=== PATIENT | male | born 1995 | race Caucasian/White ===

== ENCOUNTER 2022-01-10 21:12 | Inpatient (IN) | payer BC ==
[~2022-01-10 21:12] MED LIST: Iopamidol 300 61% 100 ML VIAL FS ONE
[2022-01-10 22:27] LABS: #Basophils 0.1 10x3/uL (0.0-0.2); #Monocytes 0.8 10x3/uL (0.0-1.1); %Basophils 1.2 % (0.0-2.0); %Eosinophils 0.2 % (0.0-6.0); %Lymphocytes 17.5 % (18.0-47.0); %Monocytes 13.6 % (0.0-10.0); %Neutrophils 67.3 % (40.0-75.0); Hemoglobin 12.8 g/dL (13.5-17.5); Mean Corpuscular HGB CONC 35.4 g/dL (32.0-36.0); Mean Corpuscular Hemoglobin 33.1 pg (27.0-33.0); Mean Corpuscular Volume 93.5 fl (81.2-95.1); Mean Platelet Volume 9.2 fl (7.4-10.4); Platelet Count 209 10x3/uL (150-450); RBC Distribution Width 11.8 % (11.5-14.5); Red Blood Cell (RBC) Count 3.87 10x6/uL (4.32-5.72); White Blood Cell (WBC) Count 5.9 10x3/uL (3.5-10.5)
[2022-01-10] MEDS ORDERED: Ondansetron PF 4 MG/2 ML Vial ONE (22:29)
[2022-01-10] MEDS ORDERED: Midazolam HCl 2 mg/2 ml Vial ONE (22:29)
[2022-01-10 22:40] LABS: ALT (SGPT) 71 U/L (8-55); AST (SGOT) 62 U/L (5-34); Albumin 4.6 g/dL (3.5-5.0); Alkaline Phosphatase 73 U/L (40-110); Anion Gap 13 mmol/L (10-20); BUN (Urea Nitrogen) 13 mg/dL (8.9-20.6); Bilirubin, Total 1.1 mg/dL (0.2-1.2); Calc. Creatinine Clearance 0 mL/min (70-130); Calcium 9.2 mg/dL (7.8-10.44); Carbon Dioxide 23 mmol/L (22-29); Chloride 106 mmol/L (98-107); Estimated GFR 126; Globulin 2.6 g/dL (2.4-3.5); Glucose 101 mg/dL (70-105); Lipase 25 U/L (8-78); Potassium 3.9 mmol/L (3.5-5.1); Protein, Total 7.2 g/dL (6.0-8.3); Sodium 138 mmol/L (136-145)
[2022-01-10] MEDS ORDERED: chlordiazePOXIDE HCl 25 MG CAP ONE (22:43)
[2022-01-10] MEDS ORDERED: Ketorolac Tromethamine 30 MG/ML VIAL ONE (22:44)
[2022-01-10] MEDS ORDERED: Morphine 4 MG/ML VIAL ONE (22:44)
[2022-01-10] MEDS ORDERED: Multivitamins, Adult 10 ML, Thiamine HCl 100 MG, Folic Acid 1 MG in Dextrose 5 %-0.45 %... IV SCH (23:00)
[2022-01-10] MEDS ORDERED: Calcium Carbonate 500 MG ChewTAB PO PRN (23:36)
[2022-01-10] MEDS ORDERED: Senokot S 8.6-50 MG TAB PO PRN (23:36)
[2022-01-10] MEDS ORDERED: Ondansetron PF 4 MG/2 ML Vial IVP PRN (23:36)
[2022-01-10] MEDS ORDERED: Guaifenesin DM 100-10/5 ML UDCUP PO PRN (23:36)
[2022-01-10] MEDS ORDERED: Morphine 2 MG/ML VIAL SLOW IVP PRN (23:56)
[2022-01-10] MEDS ORDERED: Nicotine 21 MG PATCH TD SCH (23:59)
[2022-01-11 01:55] VITALS: BMI 28.7
[2022-01-11] MEDS: Lorazepam 2 MG/ML VIAL SLOW IVP SCH ×7 (02:03→23:59)
[2022-01-11] MEDS: Dextrose 5%-Lactated Ringers 1,000 ML IV SCH ×3 (02:03→18:46)
[2022-01-11 04:28] LABS: SARS-CoV-2 NAA Rapid Test Not Detected (NotDetected)
[2022-01-11 06:41] LABS: Hemoglobin 12.2 g/dL (13.5-17.5); Mean Corpuscular HGB CONC 34.2 g/dL (32.0-36.0); Mean Corpuscular Hemoglobin 33.1 pg (27.0-33.0); Mean Corpuscular Volume 96.7 fl (81.2-95.1); Platelet Count 167 10x3/uL (150-450); RBC Distribution Width 11.9 % (11.5-14.5); Red Blood Cell (RBC) Count 3.69 10x6/uL (4.32-5.72); White Blood Cell (WBC) Count 4.7 10x3/uL (3.5-10.5)
[2022-01-11 07:03] LABS: ALT (SGPT) 65 U/L (8-55); AST (SGOT) 61 U/L (5-34); Alkaline Phosphatase 64 U/L (40-110); Anion Gap 11 mmol/L (10-20); BUN (Urea Nitrogen) 9 mg/dL (8.9-20.6); Bilirubin, Total 1.2 mg/dL (0.2-1.2); CK (CPK) 227 U/L (30-200); Calc. Creatinine Clearance 176 mL/min (70-130); Calcium 8.5 mg/dL (7.8-10.44); Carbon Dioxide 25 mmol/L (22-29); Chloride 107 mmol/L (98-107); Estimated GFR 125; Globulin 2.1 g/dL (2.4-3.5); Glucose 97 mg/dL (70-105); Lipase 49 U/L (8-78); Magnesium 2.1 mg/dL (1.6-2.6); Phosphorus 3.7 mg/dL (2.3-4.7); Potassium 3.2 mmol/L (3.5-5.1); Protein, Total 6.1 g/dL (6.0-8.3); Sodium 140 mmol/L (136-145)
[2022-01-11] MEDS ORDERED: Electrolyte Replacement Protocol 1 EACH FS SCH (08:15)
[2022-01-11 09:12] LABS: MDiff Complete? YES
[2022-01-11] MEDS: Enoxaparin Sodium 40 MG/0.4 ML SYRINGE SC SCH (09:50)
[2022-01-11] MEDS: Famotidine/PF 20 mg/2ml Vial SLOW IVP SCH ×2 (09:51→20:28)
[2022-01-11] MEDS: Thiamine HCl 200 MG/2 ML VIAL SLOW IVP SCH (09:51)
[2022-01-11] MEDS: Multivitamin W/ Minerals 1 TAB PO SCH (09:52)
[2022-01-11] MEDS: Nicotine 21 MG PATCH TD SCH (09:52)
[2022-01-11] MEDS: Folic Acid 1 MG TAB PO SCH (09:52)
[2022-01-11 10:20] LABS: Eosinophils 1 % (0-10); Lymphocytes 41 % (21-51); Monocytes 17 % (0-10); Neutrophil 40 % (42-75)
[2022-01-11 10:21] LABS: Platelet Morphology Comment Appears Adequate
[2022-01-11] MEDS: Potassium Chloride 20 MEQ in Premix Bag 1 BAG IVPB SCH ×2 (12:08→15:16)
[2022-01-11 19:27] LABS: Amphetamine Not Detected (NotDetected); Barbiturates Screen Not Detected (NotDetected); Benzodiazepine Screen Detected (NotDetected); Cocaine Metabolite Screen Not Detected (NotDetected); Methadone Not Detected (NotDetected); Methamphetamine Not Detected (NotDetected); Opiate Screen Not Detected (NotDetected); Oxycodone Screen Not Detected (NotDetected); Phencyclidine (PCP) Not Detected (NotDetected); THC/Cannabinoid Screen Detected (NotDetected); Tricyclic Screen Not Detected (NotDetected)
[2022-01-12] MEDS: Dextrose 5%-Lactated Ringers 1,000 ML IV SCH ×4 (01:51→22:02)
[2022-01-12] MEDS: HYDROcodone/Acetaminophen 5/325 mg Tablet PO PRN (04:03)
[2022-01-12 05:48] LABS: Potassium 3.7 mmol/L (3.5-5.1)
[2022-01-12] MEDS: Enoxaparin Sodium 40 MG/0.4 ML SYRINGE SC SCH (08:13)
[2022-01-12] MEDS: Thiamine HCl 200 MG/2 ML VIAL SLOW IVP SCH (08:13)
[2022-01-12] MEDS: Famotidine/PF 20 mg/2ml Vial SLOW IVP SCH ×2 (08:14→21:57)
[2022-01-12] MEDS: Folic Acid 1 MG TAB PO SCH (08:14)
[2022-01-12] MEDS: Multivitamin W/ Minerals 1 TAB PO SCH (08:14)
[2022-01-12] MEDS: Nicotine 21 MG PATCH TD SCH (08:19)
[2022-01-12] MEDS: Lorazepam 2 MG/ML VIAL SLOW IVP PRN (08:27)
[2022-01-12] MEDS ORDERED: Loperamide HCl 2 MG CAP PO PRN (12:32)
[2022-01-13] MEDS: Lorazepam 2 MG/ML VIAL SLOW IVP PRN (00:02)
[2022-01-13 05:48] LABS: Hemoglobin 12.7 g/dL (13.5-17.5); Mean Corpuscular HGB CONC 34.8 g/dL (32.0-36.0); Mean Corpuscular Hemoglobin 33.3 pg (27.0-33.0); Mean Corpuscular Volume 95.8 fl (81.2-95.1); Platelet Count 241 10x3/uL (150-450); RBC Distribution Width 11.7 % (11.5-14.5); Red Blood Cell (RBC) Count 3.81 10x6/uL (4.32-5.72); White Blood Cell (WBC) Count 6.1 10x3/uL (3.5-10.5)
[2022-01-13 05:58] LABS: ALT (SGPT) 69 U/L (8-55); AST (SGOT) 33 U/L (5-34); Albumin 3.9 g/dL (3.5-5.0); Alkaline Phosphatase 65 U/L (40-110); Anion Gap 12 mmol/L (10-20); BUN (Urea Nitrogen) 7 mg/dL (8.9-20.6); Bilirubin, Total 0.6 mg/dL (0.2-1.2); Calc. Creatinine Clearance 170 mL/min (70-130); Calcium 8.9 mg/dL (7.8-10.44); Carbon Dioxide 24 mmol/L (22-29); Chloride 108 mmol/L (98-107); Estimated GFR 124; Globulin 2.2 g/dL (2.4-3.5); Glucose 89 mg/dL (70-105); Magnesium 2.1 mg/dL (1.6-2.6); Potassium 3.6 mmol/L (3.5-5.1); Protein, Total 6.1 g/dL (6.0-8.3); Sodium 140 mmol/L (136-145)
[2022-01-13 07:07] LABS: MDiff Complete? YES; Platelet Morphology Comment Appears Adequate
[2022-01-13 07:10] LABS: Band 7 % (5-11); Eosinophils 2 % (0-10); Lymphocytes 24 % (21-51); Metamyelocyte 1 % (0-0); Monocytes 10 % (0-10); Neutrophil 56 % (42-75)
[2022-01-13] MEDS ORDERED: Ondansetron ODT 4 MG TAB PO PRN (08:58)
[2022-01-13] MEDS: Dextrose 5%-Lactated Ringers 1,000 ML IV SCH ×3 (10:00→20:25)
[2022-01-13] MEDS: Lorazepam 1 MG TAB PO PRN ×3 (10:09→21:22)
[2022-01-13] MEDS: Thiamine HCl 200 MG/2 ML VIAL SLOW IVP SCH (10:46)
[2022-01-13] MEDS: Famotidine/PF 20 mg/2ml Vial SLOW IVP SCH ×2 (10:46→20:45)
[2022-01-13] MEDS: Thiamine 100 MG TAB PO SCH (10:46)
[2022-01-13] MEDS: Enoxaparin Sodium 40 MG/0.4 ML SYRINGE SC SCH (10:46)
[2022-01-13] MEDS: Nicotine 21 MG PATCH TD SCH (10:47)
[2022-01-13] MEDS: Multivit, Therapeutic 1 TAB PO SCH (10:47)
[2022-01-13] MEDS: Folic Acid 1 MG TAB PO SCH (10:47)
[2022-01-13] MEDS ORDERED: Nicotine 14 MG PATCH TD PRN (12:39)
[2022-01-13] MEDS: Multivitamin W/ Minerals 1 TAB PO SCH (15:10)
[2022-01-13] MEDS: Potassium Chloride 20 MEQ TAB PO SCH (17:35)
[2022-01-13] MEDS ORDERED: Saccharomyces boulardii 250 MG CAP PO SCH (21:00)
[2022-01-14] MEDS: Lorazepam 1 MG TAB PO PRN (01:09)
[2022-01-14] MEDS: Famotidine/PF 20 mg/2ml Vial SLOW IVP SCH (08:48)
[2022-01-14] MEDS: Enoxaparin Sodium 40 MG/0.4 ML SYRINGE SC SCH (08:48)
[2022-01-14] MEDS: Dextrose 5%-Lactated Ringers 1,000 ML IV SCH (08:48)
[2022-01-14] MEDS: Folic Acid 1 MG TAB PO SCH (08:49)
[2022-01-14] MEDS: Potassium Chloride 20 MEQ TAB PO SCH (08:49)
[2022-01-14] MEDS: Multivit, Therapeutic 1 TAB PO SCH (08:50)
[2022-01-14] MEDS: Thiamine 100 MG TAB PO SCH (08:50)
[2022-01-14] MEDS ORDERED: Lorazepam 1 MG TAB PO PRN (08:58)
[2022-01-14] MEDS: HYDROcodone/Acetaminophen 5/325 mg Tablet PO PRN (08:59)
[2022-01-14 11:36] VITALS: BP 127/73; TEMP 97.9
[2022-01-15] MEDS ORDERED: Lorazepam 1 MG TAB PO PRN (08:58)
[2022-01-16] MEDS ORDERED: Lorazepam 0.5 MG TAB PO PRN (08:58)
== END 2022-01-14 11:35 | disposition home or self-care (01) | DRG 897 ==
LOC: CSHER/OP 21:12 → CSHHBO 21:12 → CSHERS 21:12 → CSHTELE 23:28 → OBSVTOIN 23:29 → CSHTELE 01-12 11:19
PROVIDERS: ADMIT Student in an Organized Health Care Education/Training Program; ATTEND Internal Medicine
PROC: HZ2ZZZZ Detoxification Services for Substance Abuse Treatment (ICD-10-PCS; principal; 2022-01-10)
DX: F10.231 Alcohol dependence with withdrawal delirium (principal); Z20.822 Contact with and (suspected) exposure to COVID-19; F41.9 Anxiety disorder, unspecified; F90.9 Attention-deficit hyperactivity disorder, unspecified type; R74.01 Elevation of levels of liver transaminase levels; E86.0 Dehydration; D53.9 Nutritional anemia, unspecified; F12.10 Cannabis abuse, uncomplicated; K70.0 Alcoholic fatty liver; F10.232 Alcohol dependence with withdrawal with perceptual disturbance; E87.6 Hypokalemia; K70.10 Alcoholic hepatitis without ascites; F17.210 Nicotine dependence, cigarettes, uncomplicated; Z71.6 Tobacco abuse counseling; Z82.49 Family history of ischemic heart disease and other diseases of the circulatory system; Z71.51 Drug abuse counseling and surveillance of drug abuser; Z71.41 Alcohol abuse counseling and surveillance of alcoholic
CPT/HCPCS: 36415; 74177; 80053; 80306; 82550; 83690; 83735; 84100; 84132; 85025; 96361; 96365; 96366; 96375; J1650; J1885; J2060; J2250; J2270; J2405; J3411; J3480; J7042; Q9967; S0028; U0002